=== PATIENT | male | born 1955 | race Caucasian/White ===

== ENCOUNTER 2016-04-04 06:26 | Day surgery (SDC) | payer OTHER ==
[~2016-04-04] VITALS: Ht 177.8 cm; Wt 95.0 kg
[2016-04-04] VITALS (8 sets, daily range): BP systolic 105–134; BP diastolic 50–80; PULSE 53–63; RESP 11–16; O2SAT 91–96
[~2016-04-04 06:26] MED LIST: CAR8A PO; CeFAZolin 2 Gm/50 mL D5W IV Premix IV ONE; IBUP400T22 PO
[2016-04-04] MEDS ORDERED: Ondansetron 2 mg/mL 2 mL Inj ONE (06:27)
[2016-04-04] MEDS ORDERED: Propofol 10,000 mCg/mL 20 mL Inj ONE (06:27)
[2016-04-04] MEDS ORDERED: fentaNYL-PF 50 mCg/mL 2 mL Inj ONE (06:27)
[2016-04-04] MEDS ORDERED: MetoCLOpramide 5 mg/mL 2 mL Inj ONE (06:27)
[2016-04-04] MEDS ORDERED: Dexamethasone 4 mg/mL Inj ONE (06:27)
[2016-04-04] MEDS ORDERED: ASPI-973 PO (07:07)
[2016-04-04] MEDS: Lactated Ringer's 1,000 ML IV SCH ×2 (07:14→08:28)
[2016-04-04] MEDS ORDERED: Lidocaine 2%-Epi 1:100,000 20 mL Inj INFILTRATE ONE (08:55)
[2016-04-04] MEDS ORDERED: MethylprednisoLONE Depot 40 mg/mL Inj ARTICULAR ONE (08:55)
[2016-04-04] MEDS ORDERED: Lactated Ringer's 1,000 ML IV SCH (09:02)
[2016-04-04] MEDS ORDERED: Lactated Ringer's 500 ML IV PRN (09:02)
--- NOTE | 2016-04-04 09:02 | PCM.HPANE ---
Patient Data Date of Service: Apr 04, 2016 (0845) Surgeon Admitting Provider: Attending Provider:Abdias Bain MD Primary Care Physician:Enrique Mathur DO Other Provider: Reason for Visit Left Knee Degenerative Medial Meniscal Tear Ht/WT & BMI Height (Feet): 5 Height (Inches): 10 Weight (Kilograms): 95 Body Mass Index 29.00 Allergies Coded Allergies: No Known Drug Allergies (Verified Allergy, Unknown, 04/08/15) Past Anesthesia History Anesthesia History: Denies:: Abnormal Airway, Anesthesia Reactions, Difficult Intubation, Fam Anesthesia Reaction, Fam Malignant Hypertherm, Malignant Hyperthermia Diabetes History Hx Diabetes?: No MRSA MRSA: No Medications Hypertension Medication: No Home Meds Incl Beta Narseh: No Reported Medications Aspirin 81 Mg [id number] Mg PO DAILY Ref 0 04/04/16 Ibuprofen 400 Mg [id number] Mg PO QID PRN For Pain Ref 0 03/30/16 Doxazosin (Cardura)8 Mg Tablet8 Mg PO HS Ref 0 03/30/16 Discontinued Reported Medications Doxazosin (Cardura)8 Mg Tablet8 Mg PO HS Ref 0 04/08/15 History HEENT History: Denies:: Abnormal Airway Cataracts Difficult Intubation Dysphagia Glaucoma Hearing Problem Hx of Heart Problems?: No Cardiovascular History: Denies:: AICD Edema Heart Murmur Hypertension Irregular Heartbeat Pacemaker Peripheral Vascular Rheumatic Fever Thrombophlebitis (LLE swelling, pre op ultrasound negative for DVT) Hx of Respiratory Problem?: No Respiratory History: Denies:: Asthma COPD Emphysema Oxygen Administration Pneumonia Tuberculosis Use of C-PAP Machine Hx Neurologic Problems?: No Neurological History: Denies:: CVA Dementia Headaches Multiple Sclerosis Parkinson's Disease Seizures Hx of GI Problems?: No Gastrointestinal History: Positive for:: Gastroesphageal Reflux (otc meds as needed) Hepatitis (as child ) Denies:: Cirrhosis Diverticulitis Gall Bladder Disease Hiatal Hernia Rectal Bleeding Hx of Problems?: No Genitourinary History: Denies:: Kidney Stones Urinary Tract Infection Male Hx: Positive for:: Prostate Problems (BPH) Skin History: Denies:: History Skin Disorders? Pressure Ulcers Hx Musculoskeletal Problems?: Yes Musculoskeletal History: Positive for:: Musculoskeletal Trauma (left knee current admission problem) Denies:: Back Injury Degenerative Joint Fibromyalgia Joint Replacement Myasthenia Gravis Osteoarthritis Rheumatoid Arthritis Systemic Lupus Psycho Social History: Denies:: Anxiety Hx Depression Hx Surgeries?: Yes (left carpal tunnel ) Hx Any Other Health Problems?: Yes Other History: Denies:: Cancer Thyroid Disease History Blood Transfusions: Positive for:: Accept Blood Products? Denies:: Blood Transfusions Hx Diabetes: No Hx Alcohol Use: NoHx Substance Use: No Smoking Status: Former Smoker Have You Smoked inLast 12 mo: No Stop/Bang S-Snoring: Do You Snore Loudly: No T-Tired: feel tired, fatigued: No O-Obsered: Observed not breath: No P-Blood Pressure: treated: No B- Body Mass Index > 35 kg/m2: No A- Age over 50: Yes N- Neck Large Circumference: No G- Gender Male: Yes CEFERINO Total Score: 2 Risk Assessment Category Category 1A: Patient has history of documented sleep apnea, and HAS NOT received any narcotic, sedative or anesthesia administration during this stay. Category 1B: Patient has history of documented sleep apnea, and HAS received any narcotic , sedative or anesthesia administration during this stay Category 2: Patient has SUSPECTED Obstructive Sleep Apnea, and HAS received any narcotic , sedative or anesthesia administration during this stay. Category 3: Patient has SUSPECTED Obstructive Sleep Apnea and HAS NOT received narcotic, sedative or anesthesia administration during this stay. Category 4: Outpatient in Procedural Areas with known sleep apnea or who screen positive for High Risk via the STOP/BANG questionnaire. Exam Exam Vital Signs Vital Signs Date Time Temp Pulse Resp B/P Pulse Ox O2 Delivery O2 Flow Rate FiO2 04/04/16 06:50 35.9 58 16 134/80 96 Room Air General Appearance: Alert, Oriented X3, Cooperative, No Acute Distress HEENT/AIRWAY: MP 2 Lungs: Clear to Auscultation Heart: Exam Unremarkable Meds/Labs/Diagnostics Admission Meds Current Medications Lactated Ringer's (Lr) 1,000 ml @ 120 mls/hr Q8H20M IV Last administered on t 07:14; Start 04/04/16 at 05:00; Stop 04/04/16 at 13:19 Plan Impression Patient chart reviewed, patient interviewed and anesthestic plan with risks, benefits, and alternatives discussed, and informed consent obtained. NPO Status: mn ASA Physical Status: ASA2 Mod Systemic Disease Anesthetic Plan: GA Bene/Risks/Altern/Consents: Yes HP Complete Prior to Induction: Yes Marquise Newton MD Apr 04, 2016 09:02
[2016-04-04] MEDS ORDERED: Ondansetron 2 mg/mL 2 mL Inj IVPUSH PRN (09:05)
[2016-04-04] MEDS ORDERED: Dexamethasone 4 mg/mL Inj IVPUSH PRN (09:05)
[2016-04-04] MEDS ORDERED: fentaNYL-PF 50 mCg/mL 2 mL Inj IVPUSH PRN (09:05)
[2016-04-04] MEDS ORDERED: EPHEDrine Sulfate 50 mg/mL Inj IVPUSH PRN (09:05)
[2016-04-04] MEDS ORDERED: Phenylephrine 10,000 mCg/mL Inj IVPUSH PRN (09:05)
[2016-04-04] MEDS ORDERED: HYDROmorphone 1 mg/mL Inj IVPUSH PRN (09:05)
[2016-04-04] MEDS ORDERED: MetoCLOpramide 5 mg/mL 2 mL Inj IVPUSH PRN (09:05)
[2016-04-04] MEDS ORDERED: HYDROcodone-APAP 5-325 mg Tablet PO PRN (09:25)
--- NOTE | 2016-04-04 09:28 | PCM.ORTHOB ---
Immediate Operative Note Date of Service: Apr 04, 2016 Pre Operative Diagnosis Left knee degenerative medial meniscal tear Post Operative Diagnosis Same Procedure Left knee arthroscopic partial medial meniscectomy Surgeon Surgeon: Abdias Bain MD Assistants: None Findings Left knee medial compartment, complex degenerative tear posterior horn of medial meniscus extending from the posterior horn into the body. Advancing degenerative changes noted on both sides of the joint, primarily affecting the medial femoral condyle with a large area of the weightbearing surface of the medial femoral condyle with loss of cartilage down to exposed bone and the remaining weightbearing surface remarkable for grade 2-3 chondromalacia. Diffuse grade 2 chondromalacia on the tibial articular surface. The anterior cruciate ligament appeared to have a minor amount of chronic appearing torn anterior fibers. The ligament however was stable to probing. Lateral compartment was better preserved with an intact lateral meniscus. There was diffuse grade 1-2 chondromalacia on both sides of the joint. The medial and lateral gutters were free of loose bodies. The patellofemoral compartment was remarkable for diffuse grade 2 chondromalacia affecting the patellar undersurface and grade 1-2 chondromalacia of the femoral trochlea. Grafts, Implants: None Complications There were no periprocedural complications identified. Condition Stable Anesthetic Administered: GA Drains: None Catheters: None Output, Estimated Blood Loss: 2 Blood Admin during surgery: No Surgical Cast or Splint: None Additional Information Tourniquet time 19 minutes Surgical Specimen Removed: No Surgical Specimen sent to Path: No Post Operative Plan The patient will be discharged from daycare surgery 1 protocol is met. The patient may begin to weight-bear as tolerated through his left lower extremity beginning postop day #1. The patient should resume his preoperative knee exercises as soon as possible. The patient will be seen in the office for routine wound check on her after postop day #5. The patient may have his skin sutures removed on or after postoperative day #12. The patient should be able to resume light activities by that time. Abdias Bain MD Apr 04, 2016 09:28
--- NOTE | 2016-04-04 09:33 | PCM.ORTHOP ---
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 The patient describes more sharp catching pain on the inside of his left knee with turning, twisting and loaded squatting activities. The patient's knee symptoms have not responded to activity modification, attempt at knee rehabilitation, anti-inflammatory medications and 2 intra-articular steroid injections. Preoperative exam of the patient's left knee reveals the knee to be stable with slightly reduced range of motion and a positive medial Darren sign. Preoperative MRI of the patient's left knee confirms a degenerative tear of the medial meniscus posterior horn and degenerative changes , primarily in the medial compartment. The patient presents for left knee arthroscopic partial medial meniscectomy. Findings Left knee medial compartment, complex degenerative tear posterior horn of medial meniscus extending from the posterior horn into the body. Advancing degenerative changes noted on both sides of the joint, primarily affecting the medial femoral condyle with a large area of the weightbearing surface of the medial femoral condyle with loss of cartilage down to exposed bone and the remaining weightbearing surface remarkable for grade 2-3 chondromalacia. Diffuse grade 2 chondromalacia on the tibial articular surface. The anterior cruciate ligament appeared to have a minor amount of chronic appearing torn anterior fibers. The ligament however was stable to probing. Lateral compartment was better preserved with an intact lateral meniscus. There was diffuse grade 1-2 chondromalacia on both sides of the joint. The medial and lateral gutters were free of loose bodies. The patellofemoral compartment was remarkable for diffuse grade 2 chondromalacia affecting the patellar undersurface and grade 1-2 chondromalacia of the femoral trochlea. Details of Procedure The patient was brought to the OR and given a general anesthetic. He was placed in the supine position and tourniquet was placed about the left thigh. Left lower extremities prepped in usual sterile fashion and tourniquet was inflated to 250 mmHg. We placed 2 infrapatellar arthroscopic portals, one medial and one lateral for the scope and instruments. We instilled lactated Ringer's with epinephrine and went directly into the medial compartment. We confirmed the presence of a complex degenerative tear of the medial meniscus extending through the posterior horn into the body. We also noted advancing degenerative changes, primarily affecting the weightbearing surface of the medial femoral condyle where there was loss of cartilage down to exposed bone. We used the arthroscopic shaver to debride the meniscal tear back to a stable base. After performing a partial medial meniscectomy we explored the rest of the knee. We found the anterior cruciate ligament have some minor amount of anterior tearing of its fibers. The majority of the ligament however was intact and stable to probing. We found the lateral compartment better preserved with an intact lateral meniscus and mild softening and grade 2 chondromalacia on both sides of the joint. The gutters were noted to be free of loose bodies. The patellofemoral compartment showed diffuse grade 2 chondromalacia of the patellar undersurface. We thoroughly irrigated the knee and removed the scope and instruments. 30 mL of 2% lidocaine with epinephrine and 40 mg of Depo-Medrol was instilled into the knee. Arthroscopic portals were closed with interrupted 4-0 nylon sutures. Dressed with Xeroform and dry gauze dressings. The tourniquet was deflated and the patient was taken back to PACU in stable satisfactory condition. There were no complications. Patient tolerated the procedure well. Grafts, Implants: None Complications There were no periprocedural complications identified. Condition Stable Anesthetic Administered: GA Drains: None Catheters: None Output, Estimated Blood Loss: 2 Blood Admin during surgery: No Surgical Cast or Splint: None Addtional Information Tourniquet time 19 minutes Surgical Specimen Removed: No Specimen sent to Pathology: No Post Operative Plan The patient will be discharged from daycare surgery 1 protocol is met. The patient may begin to weight-bear as tolerated through his left lower extremity beginning postop day #1. The patient should resume his preoperative knee exercises as soon as possible. The patient will be seen in the office for routine wound check on her after postop day #5. The patient may have his skin sutures removed on or after postoperative day #12. The patient should be able to resume light activities by that time. copies to: Enrique Mathur, DO; Abdias Bain MD, Michael G.E MD Apr 04, 2016 09:33
--- NOTE | 2016-04-04 10:08 | PCM.ANEP1 ---
Post Anesthesia Phase 1 PACU Phase 1 Assessment Date of Service: Apr 04, 2016 Vital Signs Vital Signs Date Time Temp Pulse Resp B/P Pulse Ox O2 Delivery O2 Flow Rate FiO2 04/04/16 10:01 57 14 109/50 94 Room Air 04/04/16 09:54 36.1 59 13 118/73 93 Nasal Cannula 2 04/04/16 09:50 53 13 117/68 92 Nasal Cannula 2 04/04/16 09:35 54 13 105/61 93 Nasal Cannula 4 04/04/16 09:30 56 14 119/80 93 Nasal Cannula 4 04/04/16 09:25 63 11 120/74 91 Nasal Cannula 4 04/04/16 09:22 36.8 55 12 119/72 91 Room Air 04/04/16 06:50 35.9 58 16 134/80 96 Room Air Anesthetic Administered: GA Level of Alertness: Sleepy, easy to arouse STUBBS's with Equal Strength: Yes Pain: No Nausea or Vomiting: No Oxygen Delivery: Nasal Cannula Lungs: Clear to Auscultation Dermatome Level: Full Sensation Marquise Newton MD Apr 04, 2016 10:08
--- NOTE | 2016-04-04 10:08 | PCM.ANEP2 ---
Post Anesthesia Evaluation ASA/CMS Post Anesthesia VS in Patient's Normal Range?: Yes Resp Stable; Airway Patent?: Yes CV Function & Hydration Stable: Yes Mental Status Recovered?: Yes Pain control Satisfactory?: Yes N/V Control Satisfactory?: Yes Marquise Newton MD Apr 04, 2016 10:08
== END 2016-04-04 23:59 | disposition home or self-care (01) ==
LOC: SAS 06:26
PROVIDERS: ATTEND Orthopaedic Surgery
DX: M23.204 Derangement of unspecified medial meniscus due to old tear or injury, left knee (principal); M17.12 Unilateral primary osteoarthritis, left knee; M79.89 Other specified soft tissue disorders; M22.42 Chondromalacia patellae, left knee; N40.0 Benign prostatic hyperplasia without lower urinary tract symptoms; Z87.891 Personal history of nicotine dependence
CPT/HCPCS: 29881; J0690; J1030; J1100; J2405; J2765; J7120

== ENCOUNTER 2016-08-27 12:40 | Day surgery (SDC) | payer OTHER ==
[~2016-08-27] VITALS: Ht 177.8 cm; Wt 95.2 kg
[~2016-08-27 12:40] MED LIST changes: +ASPI-973 PO; -CeFAZolin 2 Gm/50 mL D5W IV Premix IV ONE; +Sodium Chloride LOK Flush 10 mL Syringe IV PRN; +fentaNYL-PF 50 mCg/mL 2 mL Inj IVPUSH PRN
[2016-08-27 12:58] VITALS: BP 148/86; PULSE 63; RESP 16; O2SAT 94
[2016-08-27] MEDS: 0.9% Sodium Chloride 1,000 ML IV SCH ×3 (13:05→13:51)
[2016-08-27 14:00] VITALS: BP 142/81; PULSE 65; RESP 16; O2SAT 95
[2016-08-27 14:11] VITALS: BP 139/79; PULSE 75; RESP 16; O2SAT 96
[2016-08-27 14:18] VITALS: BP 159/92; PULSE 62; RESP 16; O2SAT 96
--- NOTE | 2016-08-27 23:44 | ENDO ---
[address] [address] ENDOSCOPY PROCEDURE PATIENT: ENRIQUE SANTOS : 1955 MR#: [id number] ADMIT: 08/27/2016 JOB ID: [id number] PRIMARY PROVIDER: Enrique Mathur DO PROCEDURE: Esophagogastroduodenoscopy with biopsies. INDICATIONS: A 61-year-old male with longstanding reflux who has been experiencing difficulty with swallowing over the last year. EQUIPMENT: GIF-H190. SEDATION: 4 mg Versed, 75 mcg fentanyl. COMPLICATIONS: None identified. PROCEDURE INFORMATION: After the risks and benefits were explained, written and verbal informed consent was obtained. The patient was brought into the endoscopy suite and placed into the left lateral decubitus position. Sedation was achieved using the above-stated medications with the addition of oxygen via nasal cannula. The scope was introduced into the mouth through the bite block, and advanced to the second portion of the duodenum. The scope was slowly withdrawn to carefully examine the mucosa for any defects or lesions. Retroflexed views were accomplished in the stomach. The stomach was decompressed, the scope removed from the patient who tolerated the procedure well. FINDINGS: 1. Duodenum: This appeared normal from the bulb through to the second portion. 2. Stomach: The patient had a few scattered superficial tiny ulcers in the antrum. In the prepyloric region, there was a slightly deeper, small, perhaps 3 mm ulcer consistent with NSAID-induced injury. I took a biopsy from one of the ulcerated areas for exclusion of Helicobacter or other histopathology. Retroflexed views of the LES were unremarkable apart from confirmation of sliding hiatal hernia. 3. Esophagus: The squamocolumnar junction generally seemed to correlate with the top of the gastric folds. The GEJ was at about 38 cm. The diaphragmatic pinchcock was at about 42 cm. The inflammatory-appearing mucosa extended up from the GE junction where it was LA grade D and ulcerated all the way to 35 cm from the incisors. At the GE junction, I took a single biopsy just below one of the ulcerated sections for histopathologic analysis. ENDOSCOPIC DIAGNOSES: 1. LA grade D ulcerative esophagitis. 2. Sliding hiatal hernia. 3. Multifocal punctate distal gastric ulcerations. RECOMMENDATIONS: 1. Await histopathology. 2. Minimize Aleve/any other NSAIDs. 3. The patient is encouraged to be compliant with b.i.d. proton pump inhibitor therapy. 4. Repeat upper endoscopy to ensure mucosal healing within the next six weeks. MTDD
== END 2016-08-27 23:59 | disposition home or self-care (01) ==
LOC: END 12:40
PROVIDERS: ATTEND Internal Medicine Gastroenterology
DX: K20.8 Other esophagitis (principal); K22.10 Ulcer of esophagus without bleeding; K44.9 Diaphragmatic hernia without obstruction or gangrene; K25.9 Gastric ulcer, unspecified as acute or chronic, without hemorrhage or perforation; K21.0 Gastro-esophageal reflux disease with esophagitis
CPT/HCPCS: 43239; G0500; J7030

== ENCOUNTER 2016-10-08 14:39 | Day surgery (SDC) | payer OTHER ==
[~2016-10-08] VITALS: Ht 180.3 cm; Wt 95.2 kg
[~2016-10-08 14:39] MED LIST changes: +0.9% Sodium Chloride 1,000 ML IV SCH; +OMEP20CA11 PO
[2016-10-08 15:07] VITALS: BP 134/85; PULSE 56; RESP 16
[2016-10-08 16:02] VITALS: BP 141/83; PULSE 67; RESP 16; O2SAT 93
[2016-10-08 16:12] VITALS: BP 131/81; PULSE 56; RESP 16; O2SAT 95
--- NOTE | 2016-10-08 22:22 | ENDO ---
[address] [address] ENDOSCOPY PROCEDURE PATIENT: ENRIQUE SANTOS : 1955 MR#: [id number] ADMIT: 10/08/2016 JOB ID: [id number] DATE OF PROCEDURE: 10/08/2016 PRIMARY PROVIDER: Enrique Mathur DO. PROCEDURE: Esophagogastroduodenoscopy. INDICATIONS: A 61-year-old male with LA grade D erosive/ulcerative esophagitis. He was encouraged to take twice daily PPI and return for repeat EGD in six weeks. Biopsies were unremarkable as of his last scope. The patient indicates to me that he has not been compliant with twice daily PPI and has been taking it only once per day with all of his other medications. EQUIPMENT: GIF-H180J. SEDATION: 1. Versed 2 mg. 2. Fentanyl 50 mcg. COMPLICATIONS: None identified. PROCEDURE INFORMATION: After the risks and benefits were explained, written and verbal informed consent was obtained. The patient was brought into the endoscopy suite and placed into the left lateral decubitus position. Sedation was achieved as above. Scope introduced into the mouth through the bite block and advanced under direct visualization to the second portion of the duodenum. The scope was slowly withdrawn to carefully examine the mucosa for any defects or lesions. Retroflexed views were accomplished in the stomach. The stomach was decompressed. The scope was removed from the patient who tolerated the procedure well. FINDINGS: 1. Duodenum: No pathology identified from the bulb through to the second portion. 2. Stomach: No significant mucosal pathology appreciated. Some scattered erythema as before. No ulcers. No outlet obstruction. No mass lesions. Retroflexed views disclosed a sliding hiatal hernia. 3. Esophagus: The squamocolumnar junction correlated roughly with the top of the gastric folds. That said, it is difficult to really determine the true junction in that the patient again had evidence of LA grade C erosive and ulcerative esophagitis. Multiple photographs were again taken. The diaphragmatic pinchcock was at approximately 43 cm from the incisors and the GE junction was estimated at about 39 cm from the incisors. ENDOSCOPIC DIAGNOSES: 1. LA grade C erosive esophagitis. 2. Hiatal hernia. 3. Gastropathy. RECOMMENDATIONS: 1. The patient again is encouraged to be compliant with twice daily PPI taken 30 to 60 minutes before his first and last meal of the day. 2. He will then need to repeat EGD in about 6-7 weeks to confirm healing. 3. If symptoms persist and/or esophagitis persists, then we will need to consider 24 hour pH on PPI.
== END 2016-10-08 23:59 | disposition home or self-care (01) ==
LOC: END 14:39
PROVIDERS: ATTEND Internal Medicine Gastroenterology
DX: K22.10 Ulcer of esophagus without bleeding (principal); K44.9 Diaphragmatic hernia without obstruction or gangrene; K31.9 Disease of stomach and duodenum, unspecified; K21.9 Gastro-esophageal reflux disease without esophagitis
CPT/HCPCS: 43235; G0500; J2250; J3010; J7030

== ENCOUNTER → 2016-12-03 | Day surgery (SDC) | payer OTHER ==
[~2016-12-03] VITALS: Ht 180.3 cm; Wt 95.2 kg
[~2016-12-03] MED LIST changes: +0.9% Sodium Chloride 1,000 ML IV PRN; -ASPI-973 PO
[2016-12-03 14:56] VITALS: PULSE 69; RESP 12
[2016-12-03 14:58] VITALS: BP 160/96; PULSE 69; RESP 12
[2016-12-03 16:02] VITALS: BP 156/93; PULSE 60; RESP 16; O2SAT 97
[2016-12-03 16:13] VITALS: BP 168/91; PULSE 62; RESP 16; O2SAT 97
[2016-12-03 16:19] VITALS: BP 162/98; PULSE 66; RESP 16; O2SAT 96
--- NOTE | 2016-12-04 11:12 | ENDO ---
[address] [address] ENDOSCOPY PROCEDURE PATIENT: SIMONE SANTOS : 1955 MR#: [id number] ADMIT: 12/03/2016 JOB ID: [id number] DATE: 12/03/2016 PRIMARY PROVIDER: [facility]. PROCEDURE: Esophagogastroduodenoscopy with biopsy. INDICATIONS: A 61-year-old male with a history of severe esophagitis. He tells me that he is compliant with b.i.d. omeprazole therapy and returns today to evaluate for improvement in the LA grade C erosive esophagitis seen at last exam. EQUIPMENT: GIF-H180J SEDATION: 1. Versed 2 mg. 2. Fentanyl 50 mcg. COMPLICATIONS: None identified. PROCEDURE INFO: After the risks and benefits were explained, written and verbal informed consent was obtained. The patient was brought into the endoscopy suite and placed into the left lateral decubitus position. Sedation was achieved using the above-stated medications with the addition of oxygen via nasal cannula. The scope was introduced into the mouth through the bite block, and advanced to the second portion of the duodenum. The scope was slowly withdrawn to carefully examine the mucosa for any defects or lesions. Retroflexed views were accomplished in the stomach. The stomach was decompressed. The scope removed the patient who tolerated the procedure well. FINDINGS: 1. Duodenum: No pathology appreciated from the bulb through to the second portion. 2. Stomach: No significant mucosal pathology appreciated throughout. No ulcers. No outlet obstruction. No mass lesions. Retroflexed views of the LES disclosed sliding hiatal hernia. 3. Esophagus: The squamocolumnar junction was a little difficult to didactic instructor once again as there was evidence of ulcerative LA grade C esophagitis yet again. I did not appreciate any mass effect here. I elected to take a biopsy through the obviously inflamed appearing mucosa for histopathologic analysis. The GEJ was judged to be at approximately 39 cm and the diaphragmatic pinchcock was at about 41 cm from the incisors. ENDOSCOPIC DIAGNOSES: 1. Hiatal hernia. 2. LA grade C erosive esophagitis. RECOMMENDATIONS: 1. Await histopathology. 2. Continue b.i.d. omeprazole. 3. A 24 hour pH testing on existing anti-reflux therapy. 4. We will adjust therapy accordingly contingent on the pH results and even consider surgical consultation to correct the hiatal hernia. Cc: [facility]
--- NOTE | 2016-12-05 14:13 | PATH ---
SURGICAL PATHOLOGY Attending Physician:Sim Rubio CASE STATUS: Signed Out PATIENT NAME: SIMONE SANTOS PID: [id number] : 1955 DATE COLLECTED:12/03/2016 00:00 SPECIMEN: Esophagus, Biopsy CLINICAL HISTORY: 1). DISTAL ESOPHAGUS FINAL DIAGNOSIS: Distal Esophagus: Squamocolumnar junctional mucosa with mild active esophagitis. No Greenberg's metaplastic epithelium identified. An Alcian blue pH2.5/PAS stain is pending to help identify organisms; the results will be reported as an addendum. ICD10: K20.9 GROSS DESCRIPTION: The specimen is received in one formalin filled container labeled with the patient's name, sublabeled "distal esophagus" and consists of a 0.1 x 0.1 x 0.1 CM portion of tissue which is entirely submitted in one cassette. 12/04/2016TN ICD-9 CODES: CPT CODES: 1: 54599, 35447 PROCEDURE/ADDENDA: Addendum SPI Addendum Diagnosis {Not Entered} Addendum Comment There are no fungal organisms identified on a PAS stain. Electronically Signed Out Abundio Marx MD, Ph.D. Electronically Signed Out Brandee Lizarraga MD [facility] Pathology [facility] [address], [place] [address] Technical component performed at [facility], [facility] [address], [address]
== END | disposition home or self-care (01) ==
LOC: END 01:19
PROVIDERS: ATTEND Internal Medicine Gastroenterology
DX: K20.9 Esophagitis, unspecified (principal); K44.9 Diaphragmatic hernia without obstruction or gangrene; R13.10 Dysphagia, unspecified; K21.9 Gastro-esophageal reflux disease without esophagitis; N40.0 Benign prostatic hyperplasia without lower urinary tract symptoms; Z86.010 Personal history of colon polyps
CPT/HCPCS: 43239; G0500; J2250; J3010; J7030